=== PATIENT | female | born 1945 | race Caucasian/White ===

== ENCOUNTER 2019-04-10 05:30 | Day surgery (SDC) | payer MEDICARE, OTHER ==
[2019-04-10] VITALS (8 sets, daily range): BP systolic 109–144; BP diastolic 54–89
[~2019-04-10] VITALS: Ht 152.4 cm; Wt 106.6 kg
[2019-04-10] MEDS ORDERED: SODIUM CHLORIDE 0.9% 1000ML 1,000 ML IV ONE (06:30)
[2019-04-10] MEDS ORDERED: ASCO500W7 PO (06:56)
[2019-04-10] MEDS ORDERED: OMEP40CA13 PO (06:56)
[2019-04-10] MEDS ORDERED: IBRU420T PO (06:56)
[2019-04-10] MEDS ORDERED: ATEN50TA PO (06:56)
[2019-04-10] MEDS ORDERED: MULT-1203 PO (06:56)
[2019-04-10] MEDS ORDERED: ZOLP5TAB8 PO (06:56)
[2019-04-10] MEDS ORDERED: PROPOFOL 10 MG/ML 20ML VIAL IV ONE (06:58)
[2019-04-10] MEDS ORDERED: GLYCOPYRROLATE 0.2 MG/ML 5 ML VIAL ONE (06:58)
[2019-04-10] MEDS ORDERED: LIDOCAINE HCL-MPF 2% 5ML VIAL ONE (07:00)
[2019-04-10] MEDS ORDERED: EPHEDRINE SULFATE 50 MG/ML AMPULE ONE (07:05)
[2019-04-10] MEDS ORDERED: MAGN250T2 PO (07:49)
[2019-04-10] MEDS ORDERED: CA C1TAB95 PO (07:49)
[2019-04-10] MEDS ORDERED: IBUP-2071 PO (07:50)
[2019-04-10] MEDS ORDERED: BIOT5000 PO (07:50)
== END 2019-04-10 08:00 | disposition home or self-care (01) ==
LOC: DAH 05:30 → ENDO 05:30
PROVIDERS: ATTEND Internal Medicine Gastroenterology
DX: K92.1 Melena (principal); D50.0 Iron deficiency anemia secondary to blood loss (chronic); D12.4 Benign neoplasm of descending colon; K57.30 Diverticulosis of large intestine without perforation or abscess without bleeding; M19.90 Unspecified osteoarthritis, unspecified site; C95.10 Chronic leukemia of unspecified cell type not having achieved remission; Z91.018 Allergy to other foods; Z96.642 Presence of left artificial hip joint; Z90.49 Acquired absence of other specified parts of digestive tract; Z90.710 Acquired absence of both cervix and uterus; Z90.3 Acquired absence of stomach [part of]; Z79.899 Other long term (current) drug therapy; Z82.3 Family history of stroke; Z82.49 Family history of ischemic heart disease and other diseases of the circulatory system
CPT/HCPCS: 45385; 88305; A4215 ×2; A4221; A4222; A4223; A4606; A4615; A4663; J2704; J3490 ×3; J7030

== ENCOUNTER → 2021-05-16 | Outpatient (CLI) | payer MEDICARE, OTHER ==
[~2021-05-16] MED LIST: ASCO500W7 PO; ATEN50TA PO; BIOT5000 PO; CA C1TAB95 PO; IBRU420T PO; IBUP-2071 PO; MAGN250T35 PO; MULT-1203 PO; OMEP40CA21 PO; ZOLP5TAB8 PO
== END | disposition home or self-care (01) ==
LOC: SHCH 15:35
PROVIDERS: ATTEND Internal Medicine Cardiovascular Disease
DX: I11.9 Hypertensive heart disease without heart failure (principal); E66.9 Obesity, unspecified; R55 Syncope and collapse
CPT/HCPCS: 93306

== ENCOUNTER 2023-04-26 05:05 | Observation (INO) | payer MEDICARE, OTHER ==
[2023-04-21 10:11] VITALS: BP 138/64; PULSE 81; RESP 18
[~2023-04-26] VITALS: Ht 152.4 cm; Wt 80.7 kg
[2023-04-26] VITALS (32 sets, daily range): BP systolic 125–154; BP diastolic 56–78; PULSE 83–108; RESP 15–20; O2SAT 98
[~2023-04-26 05:05] MED LIST changes: -ASCO500W7 PO; -ATEN50TA PO; +BIOT10006 PO; -BIOT5000 PO; -CA C1TAB95 PO; +CELE-146 PO; +DULO60CA64 PO; -IBRU420T PO; -IBUP-2071 PO; +IRON150C5 PO; -MAGN250T35 PO; +PIND10TA2 PO; +ZOLP10TA2 PO; -ZOLP5TAB8 PO
[2023-04-26] MEDS: LACTATED RINGERS 1000ML 1,000 ML IV ONE (06:43)
[2023-04-26] MEDS: CEFAZOLIN SODIUM 1 GM VIAL ONE (06:57)
[2023-04-26] MEDS ORDERED: 0.9%NACL 48.45 ML, ROPIVACAINE 0.5% 49.25ML, EPINEPH 0.5MG KETOROLAC 30MG,CLONIDINE 80MCG IV PRN (07:00)
[2023-04-26] MEDS ORDERED: DEXAMETHASONE SOD PHOSPHATE 10MG/ML 1ML VIAL ONE (07:59)
[2023-04-26] MEDS ORDERED: SUCCINYLCHOLINE CHLORIDE 20 MG/ML 10 ML VIAL ONE (07:59)
[2023-04-26] MEDS ORDERED: ONDANSETRON 4MG INJ ONE (07:59)
[2023-04-26] MEDS ORDERED: LIDOCAINE PF 100MG/5ML (2%) SYRINGE 5ML ONE (07:59)
[2023-04-26] MEDS ORDERED: PROPOFOL 10 MG/ML 20ML VIAL IV ONE (08:00)
[2023-04-26] MEDS ORDERED: GLYCOPYRROLATE 0.2 MG/ML 5 ML VIAL ONE (08:00)
[2023-04-26] MEDS ORDERED: ROCURONIUM BROMIDE 10MG/1ML 5ML VL ONE (08:00)
[2023-04-26] MEDS ORDERED: NEOSTIGMINE METHYLSULFATE 1MG/ML IV ONE (08:00)
[2023-04-26] MEDS ORDERED: MIDAZOLAM HCL 1 MG/ML 2ML VIAL ONE (08:00)
[2023-04-26] MEDS ORDERED: FENTANYL CITRATE PF 50 MCG/1 ML 2ML VIAL ONE ×2 (08:00→11:09)
[2023-04-26] MEDS ORDERED: GENTAMICIN SULFATE 80 MG/2 ML VIAL ONE (10:21)
[2023-04-26] MEDS ORDERED: CEFAZOLIN SODIUM 1 GM VIAL ONE (10:21)
[2023-04-26] MEDS ORDERED: TRANEXAMIC ACID 1000MG/10ML ONE (10:21)
[2023-04-26] MEDS: CEFAZOLIN SODIUM 2 GM VIAL IVPB ONE (10:41)
[2023-04-26] MEDS: TRANEXAMIC ACID 1000MG/10ML IV ONE (10:50)
[2023-04-26] MEDS: SUGAMMADEX SODIUM 200 MG/2 ML VIAL IV ONE (12:06)
[2023-04-26] MEDS ORDERED: FUROSEMIDE 40MG VIAL ONE (13:02)
[2023-04-26] MEDS ORDERED: MEPERIDINE-PF 25 MG/ML SYG ONE (13:04)
[2023-04-26] MEDS: MEPERIDINE-PF 25 MG/ML SYG ONE (14:38)
[2023-04-26] MEDS ORDERED: DiphenhydrAMINE HCL 50 MG/ML VIAL IM PRN (17:30)
[2023-04-26] MEDS ORDERED: DIPHENOXYLATE HCL/ATROPINE 2.5/0.025 MG TAB PO PRN (17:30)
[2023-04-26] MEDS ORDERED: ONDANSETRON 4MG INJ IVP PRN (17:30)
[2023-04-26] MEDS ORDERED: DIPHENHYDRAMINE HCL 25 MG CAPSULE PO PRN ×2 (17:30)
[2023-04-26] MEDS ORDERED: ACETAMINOPHEN 325 MG TAB PO PRN ×3 (17:30)
[2023-04-26] MEDS ORDERED: MAG/ALUM/SIMETH 30 ML UDCUP PO PRN (17:30)
[2023-04-26] MEDS ORDERED: BENZOCAINE/MENTH/CETYLPYRD CL 1 EACH LOZENGE MM PRN (17:30)
[2023-04-26] MEDS ORDERED: LACTULOSE 20 GM/30 ML UDCUP PO PRN (17:30)
[2023-04-26] MEDS: HYDROMORPH /0.9% NACL/PF PCA 50 ML IV PRN (17:51)
[2023-04-26] MEDS: RIVAROXABAN 10 MG TABLET PO SCH (18:20)
[2023-04-26] MEDS: CEFAZOLIN SODIUM 2 GM VIAL IVPB SCH (18:20)
[2023-04-26] MEDS: 0.9%NACL 1000ML 1,000 ML IV SCH (18:21)
[2023-04-26] MEDS: DULOXETINE HCL 30 MG CAP PO SCH (20:58)
[2023-04-26] MEDS: ZOLPIDEM TARTRATE 5 MG TAB PO SCH (20:58)
[2023-04-26] MEDS ORDERED: NON-FORMULARY MEDICATION 1 EACH (Duloxetine HCl 60 MG) PO SCH (21:00)
[2023-04-26] MEDS ORDERED: NON-FORMULARY MEDICATION 1 EACH (Zolpidem Tartrate (Ambien) 10 MG) PO SCH (21:00)
[2023-04-26] MEDS ORDERED: NON-FORMULARY MEDICATION 1 EACH (Omeprazole 40 MG) PO SCH (21:00)
[2023-04-26] MEDS: ATENOLOL 50 MG TABLET PO SCH (21:00)
[2023-04-26] MEDS ORDERED: PINDOLOL 10 MG PO SCH (21:00)
[2023-04-27] VITALS: BP 133/61; PULSE 110; RESP 18
[2023-04-27 04:00] VITALS: BP 116/57; PULSE 102; RESP 20
[2023-04-27 04:31] LABS: HEMATOCRIT 32.7 % (36-48); MEAN CORPUSCULAR HEMOGLOBIN 24.6 pg (27.0-33.0); MEAN CORPUSCULAR HGB CONC 30.9 g/dL (32.0-36.0); MEAN CORPUSCULAR VOLUME 79.6 fL (79-99); PLATELET COUNT (AUTO) 170 K/uL (130-400); RED BLOOD CELL COUNT(AUTO) 4.11 MIL/uL (4.00-5.50); RED CELL DISTRIBUTION WIDTH 17.5 % (11.0-15.5); WHITE BLOOD COUNT (AUTO) 13.7 K/uL (4.8-10.8)
[2023-04-27 04:35] LABS: CREATININE 0.6 mg/dL (0.5-1.5); POTASSIUM 3.2 mmol/L (3.5-5.1)
[2023-04-27] MEDS: PANTOPRAZOLE 40 MG TAB DR PO SCH (05:12)
[2023-04-27] MEDS: PANTOPRAZOLE 40 MG TAB DR ONE (05:13)
[2023-04-27] MEDS: IRON POLYSACCHARIDES COMPLEX 150 MG CAPSULE PO SCH (07:38)
[2023-04-27] MEDS: TRAMADOL HCL 50 MG TABLET PO PRN (07:39)
[2023-04-27 08:00] VITALS: BP 109/50; PULSE 100; RESP 19; O2SAT 95
[2023-04-27] MEDS ORDERED: POTASSIUM CHLORIDE 10% ELIXIR 20 MEQ/15 ML UDCUP PO PRN (08:00)
[2023-04-27] MEDS ORDERED: POTASSIUM CHLORIDE 20MEQ/100ML 100 ML IV PRN (08:00)
[2023-04-27] MEDS: KCL 20 MEQ ERTAB PO ONE (08:11)
[2023-04-27] MEDS: KCL 20 MEQ ERTAB PO PRN (11:07)
[2023-04-27 11:32] VITALS: BP 132/55; PULSE 100; RESP 17
[2023-05-07] MEDS ORDERED: ZOLP10TA2 PO (06:22)
[2023-05-07] MEDS ORDERED: RIVA10TA PO (06:22)
[2023-05-07] MEDS ORDERED: PIND10TA2 PO (06:22)
[2023-05-07] MEDS ORDERED: OMEP40CA21 PO (06:22)
[2023-05-07] MEDS ORDERED: OXYM-17 NS (06:22)
[2023-05-07] MEDS ORDERED: DULO60CA64 PO ×2 (06:22→06:25)
== END 2023-04-27 15:25 | disposition home health service (06) ==
LOC: DAH 05:05 → DAHIP 05:06 → 4AH 17:22
PROVIDERS: ADMIT Hospitalist; ATTEND Hospitalist
DX: M17.12 Unilateral primary osteoarthritis, left knee (principal); M21.062 Valgus deformity, not elsewhere classified, left knee; I10 Essential (primary) hypertension; E66.9 Obesity, unspecified; K21.9 Gastro-esophageal reflux disease without esophagitis; F41.0 Panic disorder [episodic paroxysmal anxiety]; Z96.641 Presence of right artificial hip joint; Z68.34 Body mass index [BMI] 34.0-34.9, adult
CPT/HCPCS: 87641; 27447; 96365; 96366 ×2; 96368; 97161; 97012; 97116 ×3; 97530 ×7; 80048; 85027; 36415; A6260; G0378 ×18; A4510; A4663; J7120 ×2; A4215 ×2; A4649 ×4; J3010 ×2; J0690 ×5; J3490 ×4; J1100; J0330; J2001; J1580; J2250; J2704; J2405; J2710; J2175 ×2; J1940; A6223; A4930; C1763 ×2; C1776; A5120; A4223; A4222; A4221; A6450; J7030

== ENCOUNTER 2023-10-11 14:00 | Observation (INO) | payer MEDICARE, OTHER ==
[~2023-10-11] VITALS: Ht 152.4 cm; Wt 69.8 kg
[2023-10-11 11:23] LABS: BASOPHILS # (AUTO) 0.07 K/uL (0.00-0.20); BASOPHILS % (AUTO) 0.5 % (0.0-5.0); EOSINOPHILS # (AUTO) 0.14 K/uL (0.00-0.70); HEMATOCRIT 42.5 % (36-48); IMMATURE GRANULOCYTE ABSOLUTE 0.02 K/uL (0-1); LYMPHOCYTES # (AUTO) 9.1 K/uL (1.0-4.8); LYMPHOCYTES % (AUTO) 65.8 % (21.0-51.0); MEAN CORPUSCULAR HEMOGLOBIN 28.4 pg (27.0-33.0); MEAN CORPUSCULAR HGB CONC 32.2 g/dL (32.0-36.0); MONOCYTES # (AUTO) 0.8 K/uL (0.1-1.0); MONOCYTES % (AUTO) 5.7 % (3.0-13.0); NEUTROPHILS # (AUTO) 3.7 K/uL (1.8-7.7); NEUTROPHILS % (AUTO) 26.9 % (40.0-77.0); PLATELET COUNT (AUTO) 208 K/uL (130-400); RED BLOOD CELL COUNT(AUTO) 4.83 MIL/uL (4.00-5.50); RED CELL DISTRIBUTION WIDTH 15.5 % (11.0-15.5); WHITE BLOOD COUNT (AUTO) 13.8 K/uL (4.8-10.8)
[2023-10-11 11:26] LABS: APPEARANCE,URINE CLEAR (CLEAR); BILIRUBIN,URINE NEGATIVE (NEGATIVE); COLOR,URINE LIGHT-YELLOW (YELLOW); GLUCOSE, URINE (UA) NEGATIVE (NEGATIVE); KETONES,URINE NEGATIVE (NEGATIVE); LEUKOCYTE ESTERASE ,URINE NEGATIVE Leu/uL (NEGATIVE); NITRATE,URINE NEGATIVE (NEGATIVE); OCCULT BLOOD,URINE NEGATIVE (NEGATIVE); PROTEIN,URINE NEGATIVE (NEGATIVE); UROBILINOGEN,URINE 0.2 mg/dL (0.2-1.0)
[2023-10-11 11:29] LABS: ADD UA MICROSCOPIC NO
[2023-10-11 11:30] LABS: CREATININE 0.7 mg/dL (0.5-1.0); POTASSIUM 4.6 mmol/L (3.5-5.1)
[2023-10-11 11:34] LABS: INR 1.01 (0.85-1.15); PROTHROMBIN TIME 10.9 SEC (9.6-11.6)
[2023-10-11 12:01] VITALS: BP 134/60; PULSE 79; RESP 18; TEMP 97
[2023-10-11 13:21] LABS: LYMPHOCYTES % (MANUAL) 53 % (22-44); MAN.DIFF COMMENT-IMPRESSION MANUAL DIFFERENTIAL; MONOCYTES % (MANUAL) 2 % (2-9); PLATELET MORPHOLOGY COMMENT ADEQUATE; REACTIVE LYMPHOCYTES 7 % (0-0); SEGMENTED NEUTROPHILS % 38 % (40-70); TOTAL CELLS COUNTED 100
[~2023-10-11 14:00] MED LIST changes: -BIOT10006 PO; +MELA1TAB73 PO; -MULT-1203 PO; +TRAZ-185 PO
[2023-10-14] VITALS (29 sets, daily range): BP systolic 98–146; BP diastolic 49–76; PULSE 66–92; RESP 8–18; TEMP 97.3–98.5; O2SAT 99
[2023-10-14] MEDS: LACTATED RINGERS 1000ML 1,000 ML IV ONE (09:08)
[2023-10-14] MEDS ORDERED: TRANEXAMIC ACID 1000MG/10ML ONE (09:22)
[2023-10-14] MEDS ORDERED: VANCOMYCIN 1G/250ML KIT 250 ML IV ONE (09:22)
[2023-10-14] MEDS: FAMOTIDINE 20MG VIAL IV ONE (09:34)
[2023-10-14] MEDS ORDERED: LIDOCAINE PF 100MG/5ML (2%) SYRINGE 5ML IVP ONE (09:43)
[2023-10-14] MEDS ORDERED: ROPivacaine 0.5% 5MG/ML 30ML ONE (09:45)
[2023-10-14] MEDS ORDERED: ketaMINE 50MG/ML SYRINGE 50 MG/ML DISP.SYRIN ONE (09:45)
[2023-10-14] MEDS: ceFAZolin SODIUM 1 GM VIAL ONE ×2 (10:34→11:26)
[2023-10-14] MEDS: ceFAZolin SODIUM 2 GM VIAL ONE (11:00)
[2023-10-14] MEDS ORDERED: VANCOMYCIN 1G VIAL TP ONE (11:27)
[2023-10-14] MEDS: VANCOMYCIN 1G VIAL TP ONE (11:27)
[2023-10-14] MEDS: morPHINE PF 100MG/10ML AMP IV ONE (11:27)
[2023-10-14] MEDS ORDERED: DiphenhydrAMINE HCL 50 MG/ML VIAL IVP PRN (13:00)
[2023-10-14] MEDS ORDERED: ONDANSETRON 4MG INJ IVP PRN (13:00)
[2023-10-14] MEDS ORDERED: POTASSIUM CHLORIDE 10% ELIXIR 20 MEQ/15 ML UDCUP PO PRN (13:00)
[2023-10-14] MEDS ORDERED: POTASSIUM CHLORIDE 20MEQ/100ML 100 ML IV PRN (13:00)
[2023-10-14] MEDS ORDERED: CALCIUM CARB 500MG PO PRN (13:00)
[2023-10-14] MEDS ORDERED: KCL 20 MEQ ERTAB PO PRN (13:00)
[2023-10-14] MEDS: 0.9%NACL 1000ML 1,000 ML IV SCH (13:00)
[2023-10-14] MEDS: MEPERIDINE-PF 25 MG/ML SYG ONE ×2 (14:59→15:00)
[2023-10-14] MEDS: ONDANSETRON 4MG INJ ONE (14:59)
[2023-10-14] MEDS: TRANEXAMIC ACID 1000MG/10ML ONE (15:00)
[2023-10-14] MEDS: acetaMINOPHEN 1,000 MG/100 ML VIAL IV ONE (15:01)
[2023-10-14] MEDS: FENTanyl CITRate PF 50 MCG/1 ML 2ML VIAL ONE (15:30)
[2023-10-14] MEDS: ketOROlac 15MG/ML VIAL (15MG/ML) IV PRN (16:13)
[2023-10-14] MEDS: HYDROcodone/acetaMINOPHEN 10/325 MG TAB ONE (16:14)
[2023-10-14] MEDS: ketOROlac 15MG/ML VIAL (15MG/ML) ONE (16:16)
[2023-10-14] MEDS ORDERED: MELA10TA2 PO (17:31)
[2023-10-14] MEDS: ceFAZolin SODIUM 2 GM VIAL IVPB SCH (18:23)
[2023-10-14] MEDS: ZOLPidem TARTrate 5 MG TAB PO SCH (21:00)
[2023-10-14] MEDS: MELATONIN 5 MG TABLET PO SCH (21:00)
[2023-10-14] MEDS: duloXETine HCL 30 MG CAP PO SCH (21:46)
[2023-10-14] MEDS: CeleCOXib 200 MG CAP PO SCH (21:46)
[2023-10-14] MEDS: trAZOdone HCL 50 MG TAB PO SCH (21:47)
[2023-10-14] MEDS: ASPIRIN 81 MG EC TAB PO SCH (21:47)
[2023-10-15] VITALS (8 sets, daily range): BP systolic 97–117; BP diastolic 47–56; PULSE 79–100; RESP 16–20; TEMP 98–99.6; O2SAT 94–97
[2023-10-15 04:37] LABS: HEMATOCRIT 34.9 % (36-48); MEAN CORPUSCULAR HEMOGLOBIN 28.2 pg (27.0-33.0); MEAN CORPUSCULAR HGB CONC 32.1 g/dL (32.0-36.0); MEAN CORPUSCULAR VOLUME 87.9 fL (79-99); RED BLOOD CELL COUNT(AUTO) 3.97 MIL/uL (4.00-5.50); RED CELL DISTRIBUTION WIDTH 15.5 % (11.0-15.5); WHITE BLOOD COUNT (AUTO) 19.1 K/uL (4.8-10.8)
[2023-10-15 04:42] LABS: CREATININE 1.1 mg/dL (0.5-1.0); POTASSIUM 4.7 mmol/L (3.5-5.1)
[2023-10-15] MEDS: IRON POLYSACCHARIDES COMPLEX 150 MG CAPSULE PO SCH (08:54)
[2023-10-15] MEDS: HYDROcodone/APAP 5/325 1 TAB TABLET PO PRN (08:54)
[2023-10-15] MEDS: PANTOPRAZOLE 40 MG TAB DR PO SCH (08:55)
[2023-10-15] MEDS: PINDOLOL 5 MG PO SCH (08:56)
[2023-10-15] MEDS: polyETHYLene GLYCol 3350 17 GM POWD.PACK PO SCH (08:56)
[2023-10-15] MEDS: MAG/ALUM/SIMETH 30 ML UDCUP PO PRN (14:54)
[2023-10-16] VITALS: BP 118/60; PULSE 92; RESP 20; TEMP 98.5
[2023-10-16 04:00] VITALS: BP 128/59; PULSE 91; RESP 20; TEMP 98
[2023-10-16 05:39] LABS: BASOPHILS # (AUTO) 0.03 K/uL (0.00-0.20); BASOPHILS % (AUTO) 0.3 % (0.0-5.0); EOSINOPHILS # (AUTO) 0.08 K/uL (0.00-0.70); EOSINOPHILS % (AUTO) 0.7 % (0.0-8.0); HEMATOCRIT 29.3 % (36-48); IMMATURE GRANULOCYTE ABSOLUTE 0.03 K/uL (0-1); LYMPHOCYTES # (AUTO) 4.8 K/uL (1.0-4.8); LYMPHOCYTES % (AUTO) 44.7 % (21.0-51.0); MEAN CORPUSCULAR HEMOGLOBIN 28.7 pg (27.0-33.0); MEAN CORPUSCULAR HGB CONC 33.1 g/dL (32.0-36.0); MEAN CORPUSCULAR VOLUME 86.7 fL (79-99); MONOCYTES # (AUTO) 1.2 K/uL (0.1-1.0); MONOCYTES % (AUTO) 10.8 % (3.0-13.0); NEUTROPHILS # (AUTO) 4.6 K/uL (1.8-7.7); NEUTROPHILS % (AUTO) 43.2 % (40.0-77.0); PLATELET COUNT (AUTO) 139 K/uL (130-400); RED BLOOD CELL COUNT(AUTO) 3.38 MIL/uL (4.00-5.50); RED CELL DISTRIBUTION WIDTH 15.2 % (11.0-15.5); WHITE BLOOD COUNT (AUTO) 10.7 K/uL (4.8-10.8)
[2023-10-16] MEDS ORDERED: AEC81 PO (07:05)
[2023-10-16] MEDS ORDERED: HYDR-4060 PO (07:05)
[2023-10-16 08:00] VITALS: BP 110/57; PULSE 103; RESP 18; TEMP 98.4; O2SAT 95
[2023-10-17] MEDS ORDERED: BisaCODYL 10 MG SUPP.RECT RC PRN (13:00)
== END 2023-10-16 12:05 | disposition home or self-care (01) ==
LOC: DAHIP 10-14 08:43 → 4BH 10-14 16:09
PROVIDERS: ADMIT Orthopaedic Surgery; ATTEND Orthopaedic Surgery
DX: M17.11 Unilateral primary osteoarthritis, right knee (principal); I10 Essential (primary) hypertension; D72.823 Leukemoid reaction; E11.9 Type 2 diabetes mellitus without complications; E03.9 Hypothyroidism, unspecified; Z85.6 Personal history of leukemia; Z90.710 Acquired absence of both cervix and uterus; Z96.643 Presence of artificial hip joint, bilateral; Z96.652 Presence of left artificial knee joint; Z85.038 Personal history of other malignant neoplasm of large intestine; Z79.899 Other long term (current) drug therapy
CPT/HCPCS: 80048 ×2; 85025 ×2; 85610; 87086; 81003; 36415 ×3; 87641; 64447; 27447; 96365; 96375; 88311; 88305; 97161; 97530 ×4; 93005; 96366; 85027; 97116 ×3; G0378 ×41; G0379; A4223 ×2; A4663; J7120 ×2; J3370 ×2; J3490 ×6; J3010 ×2; J0690 ×5; J1100; J2710; J2001; J2704; J2274; J2405 ×2; J2175 ×2; J2795; J1885; A9272; A4649 ×3; A4930 ×2; C1713; C1776; A4215; A4213; A4222; A4221; A4216